=== PATIENT | female | born 2000 | race Two or more races ===

== ENCOUNTER 2021-04-15 17:35 | Emergency (ER) | payer OTHER ==
[~2021-04-15] VITALS: Ht 149.9 cm; Wt 68.0 kg
[2021-04-15 19:05] LABS: HEMOGLOBIN 13.4 gm/dl (12.3-15.3); RED BLOOD COUNT 4.59 M/UL (4.00-5.10); WHITE BLOOD COUNT 5.3 K/UL (4.5-11.0)
[2021-04-15 19:26] LABS: BUN/CREATININE RATIO 19 (0-10)
[2021-04-15] MEDS ORDERED: ZOFRAN ODT 4 MG4 MG GT (19:57)
[2021-04-15] MEDS ORDERED: PROAIR DIGIHAL90 MCG INH (19:57)
[2021-04-15] MEDS ORDERED: BENZONATATE100 MG PO (19:57)
== END 2021-04-15 21:25 | disposition home or self-care (01) ==
LOC: ER1 17:35
PROVIDERS: Emergency Medicine
DX: U07.1 COVID-19 (principal); Z23 Encounter for immunization; F17.200 Nicotine dependence, unspecified, uncomplicated
CPT/HCPCS: 71045; 80053; 83735; 85025; 94664; 96374; 96375; 99284; J1885; J2405; M0245